=== PATIENT | female | born 1965 | race Caucasian/White ===

== ENCOUNTER → 2017-01-16 | Outpatient (CLI) | payer OTHER ==
--- NOTE | 2017-01-17 10:58 | MM ---
Reason for exam: screening (asymptomatic). Last mammogram was performed 4 years and 6 months ago. History: Patient is postmenopausal. Physical Findings: A clinical breast exam by your physician is recommended on an annual basis and results should be correlated with mammographic findings. MG Screening Mammo w CAD Bilateral CC and MLO view(s) were taken. Prior study comparison: July 21, 2012, mammogram. January 30, 2010, mammogram. The breast tissue is extremely dense which could obscure a lesion on mammography. Finding: There is a 3 mm equal density (isodense), indistinct mass located 8 cm from the nipple in the upper quadrant, posterior position of the left breast. New finding since July 21, 2012 and January 30, 2010. ASSESSMENT: Probably benign, BI-RAD 3 RECOMMENDATION: Follow-up diagnostic mammogram of the left breast in 6 months.
== END | disposition home or self-care (01) ==
LOC: RADMAMWWP 14:59
PROVIDERS: ATTEND Family Medicine
DX: Z12.31 Encounter for screening mammogram for malignant neoplasm of breast (principal)

== ENCOUNTER → 2017-07-18 | Outpatient (CLI) | payer OTHER ==
--- NOTE | 2017-07-18 11:45 | MM ---
Reason for exam: follow-up at short interval from prior study. Last mammogram was performed 6 months ago. History: Patient is postmenopausal. Physical Findings: Nurse did not find any significant physical abnormalities on exam. MG Diagnostic Mammo LT w CAD CC and MLO view(s) were taken of the left breast. Prior study comparison: January 16, 2017, bilateral MG screening mammo w CAD. July 21, 2012, mammogram. The breast tissue is heterogeneously dense. This may lower the sensitivity of mammography. Stable benign calcifications. There is no discrete abnormality. No significant new findings when compared with previous films. These results were verbally communicated with the patient and result sheet given to the patient on 07/18/17. ASSESSMENT: Benign, BI-RAD 2 RECOMMENDATION: Return to routine screening mammogram schedule for both breasts.
== END | disposition home or self-care (01) ==
LOC: RADMAMWWP 10:57
PROVIDERS: ATTEND Family Medicine
DX: R92.2 Inconclusive mammogram (principal)
CPT/HCPCS: 77065

== ENCOUNTER → 2018-01-16 | Outpatient (CLI) | payer OTHER ==
--- NOTE | 2018-01-16 13:28 | MM ---
Reason for exam: screening (asymptomatic). Last mammogram was performed 6 months ago. History: Patient is postmenopausal. Physical Findings: A clinical breast exam by your physician is recommended on an annual basis and results should be correlated with mammographic findings. MG Screening Mammo w CAD Bilateral CC and MLO view(s) were taken. Prior study comparison: July 18, 2017, left breast MG diagnostic mammo LT w CAD. January 16, 2017, bilateral MG screening mammo w CAD. The breast tissue is heterogeneously dense. This may lower the sensitivity of mammography. Stable benign calcifications. There is chronic nodularity bilaterally. No significant changes when compared with prior studies. ASSESSMENT: Benign, BI-RAD 2 RECOMMENDATION: Routine screening mammogram of both breasts in 1 year.
== END | disposition home or self-care (01) ==
LOC: RADMAMWWP 07:29
PROVIDERS: ATTEND Family Medicine
DX: Z12.31 Encounter for screening mammogram for malignant neoplasm of breast (principal)
CPT/HCPCS: 77067

== ENCOUNTER → 2020-04-12 | Outpatient (CLI) | payer OTHER ==
--- NOTE | 2020-04-17 08:59 | MM ---
Reason for exam: screening (asymptomatic). Last mammogram was performed 2 years and 3 months ago. History: Patient is postmenopausal. Physical Findings: A clinical breast exam by your physician is recommended on an annual basis and results should be correlated with mammographic findings. MG Screening Mammo w CAD Bilateral CC, MLO, and XCCL view(s) were taken. Prior study comparison: January 16, 2018, bilateral MG screening mammo w CAD. July 18, 2017, left breast MG diagnostic mammo LT w CAD. The breast tissue is heterogeneously dense. This may lower the sensitivity of mammography. No significant changes when compared with prior studies. ASSESSMENT: Benign, BI-RAD 2 RECOMMENDATION: Routine screening mammogram of both breasts in 1 year.
== END | disposition home or self-care (01) ==
LOC: RADMAMWWP 07:49
PROVIDERS: ATTEND Family Medicine
DX: Z12.31 Encounter for screening mammogram for malignant neoplasm of breast (principal)
CPT/HCPCS: 77067

== ENCOUNTER → 2021-08-14 | Outpatient (CLI) | payer OTHER ==
--- NOTE | 2021-08-15 12:25 | MM ---
Reason for exam: screening (asymptomatic). Last mammogram was performed 1 year and 4 months ago. History: Patient is postmenopausal. Physical Findings: A clinical breast exam by your physician is recommended on an annual basis and results should be correlated with mammographic findings. MG Screening Mammo w CAD Bilateral CC and MLO view(s) were taken. Prior study comparison: April 12, 2020, bilateral MG screening mammo w CAD. January 16, 2018, bilateral MG screening mammo w CAD. Finding: There are typically benign calcifications in the left breast laterally, 9cm from the nipple. No significant changes in finding since April 12, 2020 and January 16, 2018. ASSESSMENT: Benign, BI-RAD 2 RECOMMENDATION: Routine screening mammogram of both breasts in 1 year.
== END | disposition home or self-care (01) ==
LOC: RADMAMWWP 09:44
PROVIDERS: ATTEND Family Medicine
DX: Z12.31 Encounter for screening mammogram for malignant neoplasm of breast (principal); Z78.0 Asymptomatic menopausal state
CPT/HCPCS: 77067

== ENCOUNTER → 2022-07-30 | Outpatient (CLI) | payer OTHER ==
--- NOTE | 2022-07-30 11:06 | MR ---
EXAMINATION TYPE: MR angio head wo con DATE OF EXAM: 07/30/2022 COMPARISON: NONE HISTORY: Headache TECHNIQUE: Utilizing 3-D [id number] intracranial MRA of the [place] of [place] was performed. FINDINGS: The vertebrobasilar and carotid systems are patent. There is no sizable aneurysm or vascular malform ation. IMPRESSION: 1. No evidence of vascular malformation or sizable aneurysm.
--- NOTE | 2022-07-30 11:27 | MR ---
EXAMINATION TYPE: MR brain wo con DATE OF EXAM: 07/30/2022 COMPARISON: NONE HISTORY: Headaches TECHNIQUE: T1-weighted sagittal, T2, FLAIR, and diffusion axial, and T2 coronal coronal views of the brain are submitted. FINDINGS: Diffusion imaging demonstrates a small focal area of increased signal within the posterior right robson etal lobe measuring 4 mm. There is corresponding FLAIR abnormal signal.. The ventricles, basal ciste rns, and sulci overlying the convexities are consistent with the patient's age. There is no mass eff ect. Craniocervical junction maintained. Sella turcica has a normal appearance. Nasal septal deviation not ed. Changes of chronic sinusitis. There is additional area of abnormal signal involving the superior right parietal cortex just previou s ischemia. A few scattered focal areas of abnormal signal are also seen within the white matter. No cerebellopontine angle mass. IMPRESSION: 1. There is a 4 mm area of diffusion restriction within the posterior right parietal lobe. Could repr esent a tiny area of subacute ischemia. Report called to referring clinician Laureen Gutiérrez 11:20 AM 07/30/2022. 2. Additional couple scattered foci of abnormal signal within the white matter is nonspecific and cou ld be on the basis of remote ischemia, hypertension, migraine headaches, or possibly demyelinating di sease correlate clinically. 3. On FLAIR imaging there is an area of abnormal signal in the superior right parietal cortex suggest daryl of remote 1 cm area of prior ischemia.
== END | disposition home or self-care (01) ==
LOC: RADMRIMAIN 09:26
PROVIDERS: ATTEND Nurse Practitioner
DX: G44.53 Primary thunderclap headache (principal); G44.82 Headache associated with sexual activity; G93.89 Other specified disorders of brain; Z82.49 Family history of ischemic heart disease and other diseases of the circulatory system
CPT/HCPCS: 70544; 70551

== ENCOUNTER → 2022-07-30 | Outpatient (CLI) | payer OTHER ==
[2022-07-30 15:41] LABS: HCT 45.2 % (37.2-46.3); HGB 14.9 g/dL (12.0-15.0); MCH 30.3 pg (27.0-32.0); MCV 91.9 fL (80.0-97.0); Mean Platelet Volume 12.1 fL (9.5-12.2); NRBC Per 100 WBC 0 /100 WBCS (0.0-0.0); Platelet Count 182 X 10*3/uL (140-440); RBC 4.92 X 10*6/uL (4.10-5.20); RDW 13.1 % (11.5-14.5); WBC 7.01 X 10*3/uL (4.50-10.00)
[2022-07-30 16:11] LABS: ALT 23 U/L (8-44); AST 24 U/L (13-35); African American GFR (CKD) 111.5 (60.0-200.0); Albumin 4.6 g/dL (3.8-4.9); Albumin/Globulin Ratio 1.96 (1.60-3.17); Alkaline Phosphatase 109 U/L (41-126); BUN/Creat Ratio 22.44 Ratio (12.00-20.00); Blood Urea Nitrogen 15.8 mg/dL (9.0-27.0); Calcium 9.5 mg/dL (8.7-10.3); Chloride 103 mmol/L (96-109); Chol/HDL Ratio 3.19 Ratio; Globulin 2.3 g/dL (1.6-3.3); Glucose 91 mg/dL (70-110); LDL Cholesterol,Calculated 142.1 mg/dL (0.0-131.0); Non-African American GFR(CKD) 96.2 (60.0-200.0); Potassium 4.1 mmol/L (3.5-5.5); Sodium 141 mmol/L (135-145); Total Protein 6.9 g/dL (6.2-8.2)
== END | disposition home or self-care (01) ==
LOC: LABWHC1 08:38
DX: Z00.00 Encounter for general adult medical examination without abnormal findings (principal); Z11.59 Encounter for screening for other viral diseases; Z13.29 Encounter for screening for other suspected endocrine disorder; G44.53 Primary thunderclap headache; G44.82 Headache associated with sexual activity
CPT/HCPCS: 36415; 80053; 80061; 84443; 85027; 86803

== ENCOUNTER 2022-07-31 06:36 | Observation (INO) | payer OTHER ==
--- NOTE | 2022-07-31 07:39 | ED ---
General Adult HPI - General Chief complaint: Recheck/Abnormal Lab/Rx Stated complaint: Abnormal Lab, Headache Time Seen by Provider: 07/31/22 07:00 Source: patient, family Mode of arrival: ambulatory Limitations: no limitations - History of Present Illness Initial comments: 57 year old female presents to the emergency Department with abnormal MRI. Stat es that the beginning of June she had several headaches which prompted her to see her primary care doctor. The headaches have gotten more constant over the past 2 weeks. She will take Aleve which will alleviate her headache. She denies any fevers or chills. No head trauma. Denies any numbness or weakness in her extremities. No history of stroke. Her primary care doctor sent her for an MRI which was completed yesterday. She received a call stating that she had signs of a stroke on her MRI. Her primary care doctor was attempting to get her into a mult au matic operator and neurologist but told her if she had continued headache that she should go into the emergency department. Did have one this morning and took an Aleve. Reports her headache is currently 1 out of 10. No other alleviating, precipitating or modifying factors - Related Data Home Medications Medication Instructions Recorded Confirmed Aspirin EC [Ecotrin Low Dose] 81 mg PO DAILY 07/31/22 07/31/22 valACYclovir HCL [Valtrex] 1,000 mg PO DAILY PRN 07/31/22 07/31/22 Previous Rx's Medication Instructions Recorded Atorvastatin [Lipitor] 40 mg PO HS #30 tab 08/01/22 Butalb/APAP/Caff 50-325-40Mg 1 each PO Q4HR PRN #21 tab 08/01/22 [Fioricet 50-325-40] Cyanocobalamin [Vitamin B-12] 1,000 mcg PO DAILY #30 tab 08/01/22 Allergies Allergy/AdvReac Type Severity Reaction Status Date / Time Sulfa (Sulfonamide AdvReac Nausea & Verified 07/31/22 09:05 Antibiotics) Vomiting sulfamethoxazole AdvReac Nausea & Verified 07/31/22 09:05 [From Bactrim] Vomiting trimethoprim [From Bactrim] AdvReac Nausea & Verified 07/31/22 09:05 Vomiting Review of Systems ROS Statement: Those systems with pertinent positive or pertinent negative responses have been documented in the HPI. ROS Other: All systems not noted in ROS Statement are negative. Past Medical History History of Any Multi-Drug Resistant Organisms: None Reported Past Psychological History: No Psychological Hx Reported Smoking Status: Never smoker Past Alcohol Use History: None Reported Past Drug Use History: None Reported General Exam Limitations: no limitations General appearance: alert, in no apparent distress Head exam: Present: atraumatic, normocephalic, normal inspection Eye exam: Present: normal appearance, PERRL, EOMI. Absent: scleral icterus, conjunctival injection, periorbital swelling ENT exam: Present: normal exam, mucous membranes moist Neck exam: Present: normal inspection. Absent: tenderness, meningismus, lymphadenopathy Respiratory exam: Present: normal lung sounds bilaterally. Absent: respiratory distress, wheezes, rales, rhonchi, stridor Cardiovascular Exam: Present: regular rate, normal rhythm, normal heart sounds. Absent: systolic murmur, diastolic murmur, rubs, gallop, clicks GI/Abdominal exam: Present: soft, normal bowel sounds. Absent: distended, tenderness, guarding, rebound, rigid Extremities exam: Present: normal inspection, full ROM, normal capillary refill. Absent: tenderness, pedal edema, joint swelling, calf tenderness Back exam: Present: normal inspection Neurological exam: Present: alert, oriented X3, CN II-XII intact Psychiatric exam: Present: normal affect, normal mood Skin exam: Present: warm, dry, intact, normal color. Absent: rash Course Vital Signs 07/31/22 07/31/22 07/31/22 06:56 10:01 14:49 Temperature 97.8 F Pulse Rate 54 L 50 L 56 L Respiratory 18 16 18 Rate Blood Pressure 154/103 159/98 144/93 O2 Sat by Pulse 97 98 98 Oximetry EKG Findings - EKG Comments: EKG Findings:: EKG demonstrates sinus bradycardia with a rate of 49. RI interval 159. QRS 86. QTC of 404. No acute ST segment elevations or depressions Medical Decision Making - Medical Decision Making Was pt. sent in by a medical professional or institution (, PA, [employer], urgent care, hospital, or half-way...) When possible be specific @ -Yes PCP Did you speak to anyone other than the patient for history (EMS, parent, family, police, friend...)? What history was obtained from this source @ -No Did you review nursing and triage notes (agree or disagree)? Why? @ -I reviewed and agree with nursing and triage notes Were old charts reviewed (outside hosp., previous admission, EMS record, old EK G, old radiological studies, urgent care reports/EKG's, half-way records)? Report findings @ -Reviewed outpatient MRI Differential Diagnosis (chest pain, altered mental status, abdominal pain women, abdominal pain men, vaginal bleeding, weakness, fever, dyspnea, syncope, headache, dizziness, GI bleed, back pain, seizure, CVA, palpatations, mental health, musculoskeletal)? @ -CVA, brain mass, ms EKG interpreted by me (3pts min.). @ -yes X-rays interpreted by me (1pt min.). @ -None done CT interpreted by me (1pt min.). @ -None done U/S interpreted by me (1pt. min.). @ -None done What testing was considered but not performed or refused? (CT, X-rays, U/S, labs)? Why? @ -None What meds were considered but not given or refused? Why? @ -None Did you discuss the management of the patient with other professionals (professionals i.e. , PA, [employer], lab, RT, psych nurse, social work professor, sonar subsystem equipment operator, teacher, operations officer, case management associate)? Give summary @ -Dr. Danielle Was smoking cessation discussed for >3mins.? @ -No Was critical care preformed (if so, how long)? @ -No Were there social determinants of health that impacted care today? How? (Homelessness, low income, unemployed, alcoholism, drug addiction, transportation, low edu. Level, literacy, decrease access to med. care, half-way, rehab)? @ -No Was there de-escalation of care discussed even if they declined (Discuss DNR or withdrawal of care, Hospice)? DNR status @ -No What co-morbidities impacted this encounter? (DM, HTN, Smoking, COPD, CAD, Can cer, CVA, ARF, Chemo, Hep., AIDS, mental health diagnosis, sleep apnea, morbid obesity)? @ -None Was patient admitted / discharged? Hospital course, mention meds given and route, prescriptions, significant lab abnormalities, going to OR and other pertinent info. @ -Upon arrival patient is placed into room 23. Thorough history and physical exam is performed. IV access established laboratory studies are conducted. I did review the patient's blood work from her primary care office yesterday. I did review her MRI. I called and spoke with Dr. Danielle. He recommended that the patient be admitted for echo, carotid Dopplers and neurology consultation. Spoke with Dr. Muniz who agreed to admit the patient Undiagnosed new problem with uncertain prognosis? @ -yes Drug Therapy requiring intensive monitoring for toxicity (Heparin, Nitro, Insulin, Cardizem)? @ -No Were any procedures done? @ -No Diagnosis/symptom? @ -subacute cephalgia, subacute cva Acute, or Chronic, or Acute on Chronic? @ -subacute Uncomplicated (without systemic symptoms) or Complicated (systemic symptoms)? @ -complicated Side effects of treatment? @ -No Exacerbation, Progression, or Severe Exacerbation? @ -No Poses a threat to life or bodily function? How? (Chest pain, USA, AL, pneumonia, PE, COPD, DKA, ARF, appy, cholecystitis, CVA, Diverticulitis, Homicidal, Suicidal, threat to staff... and all critical care pts) @ -yes - Lab Data Result diagrams: 08/01/22 08:32 08/01/22 08:32 Lab Results 07/31/22 07/31/22 07/31/22 Range/Units 08:48 08:48 08:48 WBC 6.8 (3.8-10.6) k/uL RBC 4.99 (3.80-5.40) m/uL Hgb 15.2 (11.4-16.0) gm/dL Hct 45.1 (34.0-46.0) % MCV 90.3 (80.0-100.0) fL MCH 30.4 (25.0-35.0) pg MCHC 33.7 (31.0-37.0) g/dL RDW 12.8 (11.5-15.5) % Plt Count 189 (150-450) k/uL MPV 9.3 Neutrophils % 52 % Lymphocytes % 39 % Monocytes % 4 % Eosinophils % 3 % Basophils % 1 % Neutrophils # 3.6 (1.3-7.7) k/uL Lymphocytes # 2.7 (1.0-4.8) k/uL Monocytes # 0.3 (0-1.0) k/uL Eosinophils # 0.2 (0-0.7) k/uL Basophils # 0.0 (0-0.2) k/uL ESR (0-20) mm/hr PT 10.0 (9.0-12.0) sec INR 0.9 (<1.2) APTT 23.3 (22.0-30.0) sec Sodium 141 (137-145) mmol/L Potassium 4.3 (3.5-5.1) mmol/L Chloride 107 (98-107) mmol/L Carbon Dioxide 25 (22-30) mmol/L Anion Gap 9 mmol/L BUN 11 (7-17) mg/dL Creatinine 0.53 (0.52-1.04) mg/dL Est GFR (CKD-EPI)AfAm >90 (>60 ml/min/1.73 sqM) Est GFR (CKD-EPI)NonAf >90 (>60 ml/min/1.73 sqM) Glucose 94 (74-99) mg/dL Calcium 9.4 (8.4-10.2) mg/dL Total Bilirubin 0.6 (0.2-1.3) mg/dL AST 28 (14-36) U/L ALT 26 (4-34) U/L Alkaline Phosphatase 100 (38-126) U/L Creatine Kinase (30-135) U/L Troponin I (0.000-0.034) ng/mL C-Reactive Protein (<1.0) mg/dL Total Protein 7.2 (6.3-8.2) g/dL Albumin 4.4 (3.5-5.0) g/dL Triglycerides (0.00-149.00) mg/dL Cholesterol (0.00-200.00) mg/dL LDL Cholesterol, Calc (0.0-131.0) mg/dL VLDL Cholesterol, Calc (5.00-40.00) mg/dL HDL Cholesterol (40.00-60.00) mg/dL Cholesterol/HDL Ratio Ratio Vitamin B12 (200.0-944.0) pg/mL Vit D 1,25-Dihydroxy (20 - 79) pg/mL Folate (4.40-31.00) ng/mL TSH (0.465-4.680) mIU/L CSF Tube Number CSF Volume CSF Appearance CSF Color CSF RBC (0-10) u/L CSF Tot Nucleated Cells (0-5) u/L CSF Glucose (40-70) mg/dL CSF Total Protein (12-60) mg/dL CSF Albumin (0.0 - 35.0) mg/dL CSF IgG (MS) (0.0 - 3.4) mg/dL Serum Albumin (3500 - 5200) mg/dL CSF IgG/Alb Ratio MS (0.00 - 0.77) CSF IgG Synth Rate MS (0.00 - 3.00) mg/day CSF Oligoclonal Bands IgG (700 - 1600) mg/dL PRERNA Screen (NEGATIVE) Treponema pallidum Ab (Nonreactive) HIV-1 Antibody (Non-Reactive) HIV Ag/Ab Interpret HIV p24 Antibody (Non-Reactive) HIV-2 Antibody (Non-Reactive) HIV P24 Antigen (Non-Reactive) HTLV I/II Ab (EIA) (Negative) 07/31/22 07/31/22 07/31/22 Range/Units 08:48 08:48 11:21 WBC (3.8-10.6) k/uL RBC (3.80-5.40) m/uL Hgb (11.4-16.0) gm/dL Hct (34.0-46.0) % MCV (80.0-100.0) fL MCH (25.0-35.0) pg MCHC (31.0-37.0) g/dL RDW (11.5-15.5) % Plt Count (150-450) k/uL MPV Neutrophils % % Lymphocytes % % Monocytes % % Eosinophils % % Basophils % % Neutrophils # (1.3-7.7) k/uL Lymphocytes # (1.0-4.8) k/uL Monocytes # (0-1.0) k/uL Eosinophils # (0-0.7) k/uL Basophils # (0-0.2) k/uL ESR (0-20) mm/hr PT (9.0-12.0) sec INR (<1.2) APTT (22.0-30.0) sec Sodium (137-145) mmol/L Potassium (3.5-5.1) mmol/L Chloride (98-107) mmol/L Carbon Dioxide (22-30) mmol/L Anion Gap mmol/L BUN (7-17) mg/dL Creatinine (0.52-1.04) mg/dL Est GFR (CKD-EPI)AfAm (>60 ml/min/1.73 sqM) Est GFR (CKD-EPI)NonAf (>60 ml/min/1.73 sqM) Glucose (74-99) mg/dL Calcium (8.4-10.2) mg/dL Total Bilirubin (0.2-1.3) mg/dL AST (14-36) U/L ALT (4-34) U/L Alkaline Phosphatase (38-126) U/L Creatine Kinase 60 (30-135) U/L Troponin I <0.012 (0.000-0.034) ng/mL C-Reactive Protein (<1.0) mg/dL Total Protein (6.3-8.2) g/dL Albumin (3.5-5.0) g/dL Triglycerides (0.00-149.00) mg/dL Cholesterol (0.00-200.00) mg/dL LDL Cholesterol, Calc (0.0-131.0) mg/dL VLDL Cholesterol, Calc (5.00-40.00) mg/dL HDL Cholesterol (40.00-60.00) mg/dL Cholesterol/HDL Ratio Ratio Vitamin B12 (200.0-944.0) pg/mL Vit D 1,25-Dihydroxy (20 - 79) pg/mL Folate (4.40-31.00) ng/mL TSH (0.465-4.680) mIU/L CSF Tube Number 4 CSF Volume 2.5 CSF Appearance Clear CSF Color Colorless CSF RBC 1 (0-10) u/L CSF Tot Nucleated Cells 0 (0-5) u/L CSF Glucose 59 (40-70) mg/dL CSF Total Protein 42 (12-60) mg/dL CSF Albumin (0.0 - 35.0) mg/dL CSF IgG (MS) (0.0 - 3.4) mg/dL Serum Albumin (3500 - 5200) mg/dL CSF IgG/Alb Ratio MS (0.00 - 0.77) CSF IgG Synth Rate MS (0.00 - 3.00) mg/day CSF Oligoclonal Bands IgG (700 - 1600) mg/dL PRERNA Screen (NEGATIVE) Treponema pallidum Ab (Nonreactive) HIV-1 Antibody (Non-Reactive) HIV Ag/Ab Interpret HIV p24 Antibody (Non-Reactive) HIV-2 Antibody (Non-Reactive) HIV P24 Antigen (Non-Reactive) HTLV I/II Ab (EIA) (Negative) 07/31/22 07/31/22 07/31/22 Range/Units 13:20 13:20 13:20 WBC (3.8-10.6) k/uL RBC (3.80-5.40) m/uL Hgb (11.4-16.0) gm/dL Hct (34.0-46.0) % MCV (80.0-100.0) fL MCH (25.0-35.0) pg MCHC (31.0-37.0) g/dL RDW (11.5-15.5) % Plt Count (150-450) k/uL MPV Neutrophils % % Lymphocytes % % Monocytes % % Eosinophils % % Basophils % % Neutrophils # (1.3-7.7) k/uL Lymphocytes # (1.0-4.8) k/uL Monocytes # (0-1.0) k/uL Eosinophils # (0-0.7) k/uL Basophils # (0-0.2) k/uL ESR 8 (0-20) mm/hr PT (9.0-12.0) sec INR (<1.2) APTT (22.0-30.0) sec Sodium (137-145) mmol/L Potassium (3.5-5.1) mmol/L Chloride (98-107) mmol/L Carbon Dioxide (22-30) mmol/L Anion Gap mmol/L BUN (7-17) mg/dL Creatinine (0.52-1.04) mg/dL Est GFR (CKD-EPI)AfAm (>60 ml/min/1.73 sqM) Est GFR (CKD-EPI)NonAf (>60 ml/min/1.73 sqM) Glucose (74-99) mg/dL Calcium (8.4-10.2) mg/dL Total Bilirubin (0.2-1.3) mg/dL AST (14-36) U/L ALT (4-34) U/L Alkaline Phosphatase (38-126) U/L Creatine Kinase 48 (30-135) U/L Troponin I (0.000-0.034) ng/mL C-Reactive Protein <0.5 (<1.0) mg/dL Total Protein (6.3-8.2) g/dL Albumin (3.5-5.0) g/dL Triglycerides 89.70 (0.00-149.00) mg/dL Cholesterol 218.00 H (0.00-200.00) mg/dL LDL Cholesterol, Calc 134.6 H (0.0-131.0) mg/dL VLDL Cholesterol, Calc 17.94 (5.00-40.00) mg/dL HDL Cholesterol 65.50 H (40.00-60.00) mg/dL Cholesterol/HDL Ratio 3.33 Ratio Vitamin B12 293.0 (200.0-944.0) pg/mL Vit D 1,25-Dihydroxy (20 - 79) pg/mL Folate (4.40-31.00) ng/mL TSH 4.030 (0.465-4.680) mIU/L CSF Tube Number CSF Volume CSF Appearance CSF Color CSF RBC (0-10) u/L CSF Tot Nucleated Cells (0-5) u/L CSF Glucose (40-70) mg/dL CSF Total Protein (12-60) mg/dL CSF Albumin (0.0 - 35.0) mg/dL CSF IgG (MS) (0.0 - 3.4) mg/dL Serum Albumin (3500 - 5200) mg/dL CSF IgG/Alb Ratio MS (0.00 - 0.77) CSF IgG Synth Rate MS (0.00 - 3.00) mg/day CSF Oligoclonal Bands IgG (700 - 1600) mg/dL PRERNA Screen (NEGATIVE) Treponema pallidum Ab (Nonreactive) HIV-1 Antibody Non-Reactive (Non-Reactive) HIV Ag/Ab Interpret HIV p24 Antibody Non-Reactive (Non-Reactive) HIV-2 Antibody Non-Reactive (Non-Reactive) HIV P24 Antigen Non-Reactive (Non-Reactive) HTLV I/II Ab (EIA) (Negative) 07/31/22 07/31/22 07/31/22 Range/Units 13:20 13:20 13:20 WBC (3.8-10.6) k/uL RBC (3.80-5.40) m/uL Hgb (11.4-16.0) gm/dL Hct (34.0-46.0) % MCV (80.0-100.0) fL MCH (25.0-35.0) pg MCHC (31.0-37.0) g/dL RDW (11.5-15.5) % Plt Count (150-450) k/uL MPV Neutrophils % % Lymphocytes % % Monocytes % % Eosinophils % % Basophils % % Neutrophils # (1.3-7.7) k/uL Lymphocytes # (1.0-4.8) k/uL Monocytes # (0-1.0) k/uL Eosinophils # (0-0.7) k/uL Basophils # (0-0.2) k/uL ESR (0-20) mm/hr PT (9.0-12.0) sec INR (<1.2) APTT (22.0-30.0) sec Sodium (137-145) mmol/L Potassium (3.5-5.1) mmol/L Chloride (98-107) mmol/L Carbon Dioxide (22-30) mmol/L Anion Gap mmol/L BUN (7-17) mg/dL Creatinine (0.52-1.04) mg/dL Est GFR (CKD-EPI)AfAm (>60 ml/min/1.73 sqM) Est GFR (CKD-EPI)NonAf (>60 ml/min/1.73 sqM) Glucose (74-99) mg/dL Calcium (8.4-10.2) mg/dL Total Bilirubin (0.2-1.3) mg/dL AST (14-36) U/L ALT (4-34) U/L Alkaline Phosphatase (38-126) U/L Creatine Kinase (30-135) U/L Troponin I (0.000-0.034) ng/mL C-Reactive Protein (<1.0) mg/dL Total Protein (6.3-8.2) g/dL Albumin (3.5-5.0) g/dL Triglycerides (0.00-149.00) mg/dL Cholesterol (0.00-200.00) mg/dL LDL Cholesterol, Calc (0.0-131.0) mg/dL VLDL Cholesterol, Calc (5.00-40.00) mg/dL HDL Cholesterol (40.00-60.00) mg/dL Cholesterol/HDL Ratio Ratio Vitamin B12 (200.0-944.0) pg/mL Vit D 1,25-Dihydroxy (20 - 79) pg/mL Folate (4.40-31.00) ng/mL TSH (0.465-4.680) mIU/L CSF Tube Number CSF Volume CSF Appearance CSF Color CSF RBC (0-10) u/L CSF Tot Nucleated Cells (0-5) u/L CSF Glucose (40-70) mg/dL CSF Total Protein (12-60) mg/dL CSF Albumin (0.0 - 35.0) mg/dL CSF IgG (MS) (0.0 - 3.4) mg/dL Serum Albumin (3500 - 5200) mg/dL CSF IgG/Alb Ratio MS (0.00 - 0.77) CSF IgG Synth Rate MS (0.00 - 3.00) mg/day CSF Oligoclonal Bands IgG (700 - 1600) mg/dL PRERNA Screen NEGATIVE (NEGATIVE) Treponema pallidum Ab Nonreactive (Nonreactive) HIV-1 Antibody (Non-Reactive) HIV Ag/Ab Interpret HIV p24 Antibody (Non-Reactive) HIV-2 Antibody (Non-Reactive) HIV P24 Antigen (Non-Reactive) HTLV I/II Ab (EIA) Negative (Negative) 07/31/22 07/31/22 07/31/22 Range/Units 13:20 13:20 13:20 WBC (3.8-10.6) k/uL RBC (3.80-5.40) m/uL Hgb (11.4-16.0) gm/dL Hct (34.0-46.0) % MCV (80.0-100.0) fL MCH (25.0-35.0) pg MCHC (31.0-37.0) g/dL RDW (11.5-15.5) % Plt Count (150-450) k/uL MPV Neutrophils % % Lymphocytes % % Monocytes % % Eosinophils % % Basophils % % Neutrophils # (1.3-7.7) k/uL Lymphocytes # (1.0-4.8) k/uL Monocytes # (0-1.0) k/uL Eosinophils # (0-0.7) k/uL Basophils # (0-0.2) k/uL ESR (0-20) mm/hr PT (9.0-12.0) sec INR (<1.2) APTT (22.0-30.0) sec Sodium (137-145) mmol/L Potassium (3.5-5.1) mmol/L Chloride (98-107) mmol/L Carbon Dioxide (22-30) mmol/L Anion Gap mmol/L BUN (7-17) mg/dL Creatinine (0.52-1.04) mg/dL Est GFR (CKD-EPI)AfAm (>60 ml/min/1.73 sqM) Est GFR (CKD-EPI)NonAf (>60 ml/min/1.73 sqM) Glucose (74-99) mg/dL Calcium (8.4-10.2) mg/dL Total Bilirubin (0.2-1.3) mg/dL AST (14-36) U/L ALT (4-34) U/L Alkaline Phosphatase (38-126) U/L Creatine Kinase (30-135) U/L Troponin I (0.000-0.034) ng/mL C-Reactive Protein (<1.0) mg/dL Total Protein (6.3-8.2) g/dL Albumin (3.5-5.0) g/dL Triglycerides (0.00-149.00) mg/dL Cholesterol (0.00-200.00) mg/dL LDL Cholesterol, Calc (0.0-131.0) mg/dL VLDL Cholesterol, Calc (5.00-40.00) mg/dL HDL Cholesterol (40.00-60.00) mg/dL Cholesterol/HDL Ratio Ratio Vitamin B12 (200.0-944.0) pg/mL Vit D 1,25-Dihydroxy 73 (20 - 79) pg/mL Folate 19.60 (4.40-31.00) ng/mL TSH (0.465-4.680) mIU/L CSF Tube Number CSF Volume CSF Appearance CSF Color CSF RBC (0-10) u/L CSF Tot Nucleated Cells (0-5) u/L CSF Glucose (40-70) mg/dL CSF Total Protein (12-60) mg/dL CSF Albumin 15.8 (0.0 - 35.0) mg/dL CSF IgG (MS) 1.6 (0.0 - 3.4) mg/dL Serum Albumin 4,570 (3500 - 5200) mg/dL CSF IgG/Alb Ratio MS 0.53 (0.00 - 0.77) CSF IgG Synth Rate MS 0.00 (0.00 - 3.00) mg/day CSF Oligoclonal Bands See Below IgG 871 (700 - 1600) mg/dL PRERNA Screen (NEGATIVE) Treponema pallidum Ab (Nonreactive) HIV-1 Antibody (Non-Reactive) HIV Ag/Ab Interpret HIV p24 Antibody (Non-Reactive) HIV-2 Antibody (Non-Reactive) HIV P24 Antigen (Non-Reactive) HTLV I/II Ab (EIA) (Negative) 08/01/22 08/01/22 Range/Units 08:32 08:32 WBC 6.7 (3.8-10.6) k/uL RBC 5.09 (3.80-5.40) m/uL Hgb 15.7 (11.4-16.0) gm/dL Hct 45.6 (34.0-46.0) % MCV 89.5 (80.0-100.0) fL MCH 30.8 (25.0-35.0) pg MCHC 34.5 (31.0-37.0) g/dL RDW 13.1 (11.5-15.5) % Plt Count 189 (150-450) k/uL MPV 10.4 Neutrophils % % Lymphocytes % % Monocytes % % Eosinophils % % Basophils % % Neutrophils # (1.3-7.7) k/uL Lymphocytes # (1.0-4.8) k/uL Monocytes # (0-1.0) k/uL Eosinophils # (0-0.7) k/uL Basophils # (0-0.2) k/uL ESR (0-20) mm/hr PT (9.0-12.0) sec INR (<1.2) APTT (22.0-30.0) sec Sodium 139 (137-145) mmol/L Potassium 4.3 (3.5-5.1) mmol/L Chloride 104 (98-107) mmol/L Carbon Dioxide 29 (22-30) mmol/L Anion Gap 6 mmol/L BUN 19 H (7-17) mg/dL Creatinine 0.58 (0.52-1.04) mg/dL Est GFR (CKD-EPI)AfAm >90 (>60 ml/min/1.73 sqM) Est GFR (CKD-EPI)NonAf >90 (>60 ml/min/1.73 sqM) Glucose 94 (74-99) mg/dL Calcium 9.2 (8.4-10.2) mg/dL Total Bilirubin (0.2-1.3) mg/dL AST (14-36) U/L ALT (4-34) U/L Alkaline Phosphatase (38-126) U/L Creatine Kinase (30-135) U/L Troponin I (0.000-0.034) ng/mL C-Reactive Protein (<1.0) mg/dL Total Protein (6.3-8.2) g/dL Albumin (3.5-5.0) g/dL Triglycerides (0.00-149.00) mg/dL Cholesterol (0.00-200.00) mg/dL LDL Cholesterol, Calc (0.0-131.0) mg/dL VLDL Cholesterol, Calc (5.00-40.00) mg/dL HDL Cholesterol (40.00-60.00) mg/dL Cholesterol/HDL Ratio Ratio Vitamin B12 (200.0-944.0) pg/mL Vit D 1,25-Dihydroxy (20 - 79) pg/mL Folate (4.40-31.00) ng/mL TSH (0.465-4.680) mIU/L CSF Tube Number CSF Volume CSF Appearance CSF Color CSF RBC (0-10) u/L CSF Tot Nucleated Cells (0-5) u/L CSF Glucose (40-70) mg/dL CSF Total Protein (12-60) mg/dL CSF Albumin (0.0 - 35.0) mg/dL CSF IgG (MS) (0.0 - 3.4) mg/dL Serum Albumin (3500 - 5200) mg/dL CSF IgG/Alb Ratio MS (0.00 - 0.77) CSF IgG Synth Rate MS (0.00 - 3.00) mg/day CSF Oligoclonal Bands IgG (700 - 1600) mg/dL PRERNA Screen (NEGATIVE) Treponema pallidum Ab (Nonreactive) HIV-1 Antibody (Non-Reactive) HIV Ag/Ab Interpret HIV p24 Antibody (Non-Reactive) HIV-2 Antibody (Non-Reactive) HIV P24 Antigen (Non-Reactive) HTLV I/II Ab (EIA) (Negative) Disposition Clinical Impression: CVA (cerebral vascular accident), Headache Disposition: ADMITTED IP TO THIS [facility] Condition: Stable Is patient prescribed a controlled substance at d/c from ED?: No Time of Disposition: 08:44 Decision to Admit Reason: Admit from EC Decision Date: 07/31/22 Decision Time: 08:44
[2022-07-31 09:08] LABS: Basophils % (A) 1 %; Eosinophils # (A) 0.2 k/uL (0-0.7); Eosinophils % (A) 3 %; HCT 45.1 % (34.0-46.0); HGB 15.2 gm/dL (11.4-16.0); Lymphocytes # (A) 2.7 k/uL (1.0-4.8); Lymphocytes % (A) 39 %; MCH 30.4 pg (25.0-35.0); MCHC 33.7 g/dL (31.0-37.0); MCV 90.3 fL (80.0-100.0); Mean Platelet Volume 9.3; Monocytes # (A) 0.3 k/uL (0-1.0); Monocytes % (A) 4 %; Neutrophils # (A) 3.6 k/uL (1.3-7.7); Neutrophils % (A) 52 %; Platelet Count 189 k/uL (150-450); RBC 4.99 m/uL (3.80-5.40); RDW 12.8 % (11.5-15.5); WBC 6.8 k/uL (3.8-10.6)
[2022-07-31 09:17] LABS: INR 0.9 (<1.2); Partial Thromboplastin Time 23.3 sec (22.0-30.0)
[2022-07-31 09:30] LABS: ALT 26 U/L (4-34); AST 28 U/L (14-36); African American GFR (CKD) >90 (>60 ml/min/1.73 sqM); Albumin 4.4 g/dL (3.5-5.0); Alkaline Phosphatase 100 U/L (38-126); Anion Gap 9 mmol/L; Blood Urea Nitrogen 11 mg/dL (7-17); Calcium 9.4 mg/dL (8.4-10.2); Carbon Dioxide 25 mmol/L (22-30); Chloride 107 mmol/L (98-107); Glucose 94 mg/dL (74-99); Non-African American GFR(CKD) >90 (>60 ml/min/1.73 sqM); Potassium 4.3 mmol/L (3.5-5.1); Sodium 141 mmol/L (137-145); Total Bilirubin 0.6 mg/dL (0.2-1.3); Total Protein 7.2 g/dL (6.3-8.2)
[2022-07-31] MEDS ORDERED: ACETAMINOPHEN TAB 325 MG TAB PO PRN (10:05)
--- NOTE | 2022-07-31 10:13 | US ---
EXAMINATION TYPE: US carotid duplex BILAT DATE OF EXAM: 07/31/2022 COMPARISON: NONE CLINICAL HISTORY: Stenosis. Headaches. Patient states she had an MRI yesterday and it showed she had a stroke. TECHNIQUE: Carotid duplex ultrasound examination. Indirect Doppler criteria was utilized. FINDINGS: EXAM MEASUREMENTS: RIGHT: Peak Systolic Velocity (PSV) cm/sec ----- Right CCA: 49.6 ----- Right ICA: 99.5 ----- Right ECA: 79.8 ICA/CCA ratio: 2.0 RIGHT: End Diastole cm/sec ----- Right CCA: 18.2 ----- Right ICA: 42.6 ----- Right ECA: 14.9 LEFT: Peak Systolic Velocity (PSV) cm/sec ----- Left CCA: 54.9 ----- Left ICA: 89.7 ----- Left ECA: 61.6 ICA/CCA ratio: 1.6 LEFT: End Diastole cm/sec ----- Left CCA: 19.1 ----- Left ICA: 44.6 ----- Left ECA: 13.6 VERTEBRALS (direction of flow): Right Vertebral: Antegrade Left Vertebral: Antegrade Rhythm: Normal TRAFFIC LINE PAINTER NOTES: No significant velocity elevations or plaque visualized. Slight wall thickening v isualized. IMPRESSION: No ultrasound evidence for hemodynamically significant stenosis of the bilateral internal carotid art eries. Criteria for Assigning % of Stenosis / Diameter reduction (Estimation based on the indirect measurements of the internal carotid artery velocities (ICA PSV). 1. Normal (no stenosis)=ICA PSV < 125 cm/s: ratio < 2.0: ICA EDV<40 cm/s. 2. Less than 50% stenosis=ICA PSV < 125 cm/s: ratio < 2.0: ICA EDV<40 cm/s. 3. 50 to 69% stenosis=ICA PSV of 125 to 230 cm/s: ration 2.0 ? 4.0: ICA EDV 40-100 cm/s. 4. Greater than 70% stenosis to near occlusion= ICA PSV > 230 cm/s: ratio > 4.0: ICA EDV > 100 cm/s. 5. Near occlusion= ICA PSV velocities may be low or undetectable: variable ratio and ICA EDV. 6. Total occlusion=unable to detect flow.
--- NOTE | 2022-07-31 13:08 | P.CNNES ---
History of Present Illness Consult date: 07/31/22 Requesting physician: Cookie Guzman Reason for Consult: subacute cva History of Present Illness: This is a 57-year-old gentleman who presented to the emergency department because a headache and abnormal MRI finding. Patient stated that she's been having headaches since June that's been really worse and she felt the headache were over the bilateral occipital parietal region and she had 3 episodes that were severe that were 6-9/10 and she describes it as a sharp throbbing pulsating headache. Denies any radiation of the headache. The headache would last entire day. Denies any photophobia or phonophobia. Denies any vomiting. She did have mild nausea. She would take Aleve that would take at the edge out of the headache. Then she would get other headache in the right occipital and parietal region at 6 out of 10. She does not feel there is intense and happens sporadically. She denies of any visual disturbance, difficulty swallowing, difficulty getting her words out, and he focal weakness or numbness. As a result of her headache her primary ordered MRI of the brain as well as MRA of the head that MRI of the brain is reported as 4 mm area of diffusion restriction within the posterior right parietal lobe. Could represent tiny area of subacute ischemia. Additional couple scattered foci of abnormal signal within the white matter is nonspecific and could be on the basis of remote ischemia, hyperte nsion, migraine headache or possibly demyelinating disease correlate clinically. FLAIR there is area of abnormal significant in the superior right parietal cortex suggestive of remote 1 cm area of prior ischemia. MRA of the head is reported as no evidence of vascular malformation or sizable aneurysm. Because of abnormal MRI and the she because she had another headache today she was concerned and that she wanted further evaluation. She has not seen an neurologist yet. She denies any family history of the hyper probable issues. She has a grandmother in her 80s that had a stroke. She denies any family history of multiple sclerosis that she is aware of. I personally reviewed the MRI of the brain w/o: And I felt that the lesion over the right parietal occipital region seems more T2 Shine thru. Does not seem like an acute or subacute ischemia. Patient has nonspecific lesions on FLAIR. Again I do not appreciate any acute or subacute ischemia. Review of Systems Review of system: The 12 point system was reviewed and apparent positive and negative per HPI. Past Medical History History of Any Multi-Drug Resistant Organisms: None Reported Past Psychological History: No Psychological Hx Reported Smoking Status: Never smoker Past Alcohol Use History: None Reported Past Drug Use History: None Reported Medications and Allergies Home Medications Medication Instructions Recorded Confirmed Type Aspirin EC [Ecotrin Low Dose] 81 mg PO DAILY 07/31/22 07/31/22 History Ibuprofen [Advil] 600 - 800 mg PO Q8H PRN 07/31/22 07/31/22 History valACYclovir HCL [Valtrex] 1,000 mg PO DAILY PRN 07/31/22 07/31/22 History Allergies Allergy/AdvReac Type Severity Reaction Status Date / Time Sulfa (Sulfonamide AdvReac Nausea & Verified 07/31/22 09:05 Antibiotics) Vomiting sulfamethoxazole AdvReac Nausea & Verified 07/31/22 09:05 [From Bactrim] Vomiting trimethoprim [From Bactrim] AdvReac Nausea & Verified 07/31/22 09:05 Vomiting Physical Examination - Vital Signs Vital Signs: Vital Signs Temp Pulse Resp BP Pulse Ox 07/31/22 10:01 50 L 16 159/98 98 07/31/22 06:56 97.8 F 54 L 18 154/103 97 Intake and Output 07/30/22 07/31/22 07/31/22 22:59 06:59 14:59 Other: Weight 68.946 kg GENERAL: The patient is lying in bed and is not in acute distress. CHEST: The heart rate is regular rate rhythm. No murmurs to auscultation. . LUNG: Clear to auscultation bilaterally no wheezing noted throughout. Not labored breathing. ABDOMEN/GI: Bowel sounds present in all 4 quadrants. No tenderness to palpation throughout. NEUROLOGICAL: Higher mental function: The patient is awake, alert, oriented to self, place and time. Patient is following commands. No aphasia and no neglect. Cranial nerves: The pupils are round, equal and reactive to light and accommodation. Visual ennis are full to confrontation throughout. Extraocular movement is intact no nystagmus is noted. Facial sensation is normal to touch throughout. The facial strength is normal throughout. Hearing is normal bilaterally to hand rub. Tongue is midline and moved [id number] without any difficulty. No dysarthria is noted. Shoulder shrug is normal bilaterally. Motor: The strength is 5 over 5 throughout. Normal tone and bulk. Cerebellum: Normal finger to nose bilaterally. Sensation: Sensation is normal to touch throughout. Reflexes (right/left): 2+ throughout. Plantars are downgoing bilaterally. Results - Laboratory Findings CBC and BMP: 07/31/22 08:48 07/31/22 08:48 Assessment and Plan Assessment: This is a 57-year-old woman who presented to the emergency department because of headache as well as recent MRI the brain on 07/30/2022 that was reported abnormal suggestive of subacute ischemia over the right parietal. Regarding the lesion on the right parietal/occipital: I felt was more T2 shine through. It is not acute or subacute ischemia. Lesion is poosibly demylinating. Cannot conclusively rule out old stroke but I feel unlikely. Cephalgia due to above Plan: I'll order MRI of the brain with, MRI the cervical spine with and without. I will attempt to pursue with lumbar puncture MS protocol. I ordered carotid duplex and lipid panel. 2-D echo was ordered. Ordered TSH, vitamin B12, ESR, a day, HIV, syphilis test, HTLV-1, folate. Consulted pain specialist for lumbar puncture. Recommend opening and closing pressure. In the ED the patient was started on aspirin 325 daily as well as Lipitor 80 mg daily at bedtime by the primary team. I'll decrease the Lipitor to 40 mg for now. Continue neurochecks Continue cardiac monitoring. PT OT and MUSIC WORKER are consulted Defer the rest of the medical management to primary team For DVT prophylaxis use SCDs and avoid the any anticoagulation for now since w e'll attempt to pursue lumbar puncture. Upon discharge the patient needs to follow-up with a neurologist in outpatient within 1-2 weeks. The plan was discussed with the patient and her nurse. Thank you for the consultation. Time with Patient: Greater than 30
[2022-07-31 13:52] LABS: C Reactive Protein <0.5 mg/dL (<1.0); Creatine Kinase 48 U/L (30-135)
--- NOTE | 2022-07-31 16:17 | P.HPIM ---
History of Present Illness H&P Date: 07/31/22 Chief Complaint: Headache * 57-year-old lady with no significant past medical history presented to the emergency department after patient had an abnormal MRI finding. Patient was having ongoing headache for one month and had followed up with her primary care physician ordered an MRI brain.MRI of the brain is reported as 4 mm area of diffusion restriction within the posterior right parietal lobe. Could represent tiny area of subacute ischemia. Additional couple scattered foci of abnormal signal within the white matter is nonspecific and could be on the basis of remote ischemia, hypertension, migraine headache or possibly demyelinating disease correlate clinically. FLAIR there is area of abnormal significant in the superior right parietal cortex suggestive of remote 1 cm area of prior ischemia.MRA of the head is reported as no evidence of vascular malformation or sizable aneurysm. * Because of abnormal MRI she was concerned and that she wanted further evaluat ion * Patient is admitted with further workup ordered including echocardiogram as well as carotid US * Patient was seen in ED room 23 is holding. Extensive workup ordered by neurology Review of Systems REVIEW OF SYSTEMS: Essentially negative except headache CONSTITUTIONAL: No fever, no malaise, no fatigue. HEENT: No recent visual problems or hearing problems. Denied any sore throat. CARDIOVASCULAR: No chest pain, orthopnea, PND, no palpitations, no syncope. PULMONARY: No shortness of breath, no cough, no hemoptysis. GASTROINTESTINAL: No diarrhea, no nausea, no vomiting, no abdominal pain. NEUROLOGICAL: No headaches, no weakness, no numbness. HEMATOLOGICAL: Denies any bleeding or petechiae. GENITOURINARY: Denies any burning micturition, frequency, or urgency. MUSCULOSKELETAL/RHEUMATOLOGICAL: Denies any joint pain, swelling, or any muscle pain. ENDOCRINE: Denies any polyuria or polydipsia. Past Medical History History of Any Multi-Drug Resistant Organisms: None Reported Past Psychological History: No Psychological Hx Reported Smoking Status: Never smoker Past Alcohol Use History: None Reported Past Drug Use History: None Reported Medications and Allergies Home Medications Medication Instructions Recorded Confirmed Type Aspirin EC [Ecotrin Low Dose] 81 mg PO DAILY 07/31/22 07/31/22 History Ibuprofen [Advil] 600 - 800 mg PO Q8H PRN 07/31/22 07/31/22 History valACYclovir HCL [Valtrex] 1,000 mg PO DAILY PRN 07/31/22 07/31/22 History Allergies Allergy/AdvReac Type Severity Reaction Status Date / Time Sulfa (Sulfonamide AdvReac Nausea & Verified 07/31/22 09:05 Antibiotics) Vomiting sulfamethoxazole AdvReac Nausea & Verified 07/31/22 09:05 [From Bactrim] Vomiting trimethoprim [From Bactrim] AdvReac Nausea & Verified 07/31/22 09:05 Vomiting Physical Exam Vitals: Vital Signs Temp Pulse Resp BP Pulse Ox 07/31/22 14:49 56 L 18 144/93 98 07/31/22 10:01 50 L 16 159/98 98 07/31/22 06:56 97.8 F 54 L 18 154/103 97 Intake and Output 07/31/22 07/31/22 07/31/22 06:59 14:59 22:59 Other: Weight 68.946 kg PHYSICAL EXAMINATION: Vital reviewed GENERAL: The patient is alert and oriented x3, not in any acute distress. Well developed HEENT: Pupils are round and equally reacting to light. EOMI. No scleral icterus. No conjunctival pallor. Normocephalic, atraumatic. No pharyngeal erythema. CARDIOVASCULAR: S1 and S2 present. No murmurs, Edema not present PULMONARY: Chest is clear to auscultation, no wheezing or Ronchi ABDOMEN: Soft, nontender, nondistended, normoactive bowel sounds. No palpable organomegaly. MUSCULOSKELETAL: No joint swelling or deformity. EXTREMITIES: No cyanosis, clubbing, or pedal edema. NEUROLOGICAL: Gross neurological examination did not reveal any focal deficits. SKIN: No rashes. Results CBC & Chem 7: 07/31/22 08:48 07/31/22 08:48 Assessment and Plan Assessment: Assessment and plan * Subacute CVA right posterior parietal lobe * Ongoing chronic headache * Consult obtained from neurology * MRI cervical spine with and without contrast ordered per neurology MRI brain, echocardiogram ordered * Continue to neurochecks * Workup including TSH, ESR HIV syphilis ordered by neurology * Neurology planning lumbar puncture * SCD for DVT prophylaxis * CODE STATUS is full code
[2022-07-31] MEDS ORDERED: ATORVASTATIN 80 MG TAB PO SCH (21:00)
[2022-07-31] MEDS ORDERED: ATORVASTATIN 40 MG TAB PO SCH (21:00)
[2022-07-31 23:48] LABS: HIV 2 AB Non-Reactive (Non-Reactive); HIV AB P24 Non-Reactive (Non-Reactive); HIV P24 AG Non-Reactive (Non-Reactive)
[2022-08-01 01:27] LABS: Chol/HDL Ratio 3.33 Ratio; LDL Cholesterol,Calculated 134.6 mg/dL (0.0-131.0); VLDL Calculation 17.94 mg/dL (5.00-40.00)
[2022-08-01 07:50] VITALS: RESP 18; TEMP 97.6
[2022-08-01] MEDS ORDERED: ASPIRIN 325 MG TAB PO SCH (09:00)
[2022-08-01 09:15] LABS: HCT 45.6 % (34.0-46.0); HGB 15.7 gm/dL (11.4-16.0); MCH 30.8 pg (25.0-35.0); MCHC 34.5 g/dL (31.0-37.0); MCV 89.5 fL (80.0-100.0); Mean Platelet Volume 10.4; RBC 5.09 m/uL (3.80-5.40); RDW 13.1 % (11.5-15.5); WBC 6.7 k/uL (3.8-10.6)
[2022-08-01 09:27] LABS: African American GFR (CKD) >90 (>60 ml/min/1.73 sqM); Anion Gap 6 mmol/L; Blood Urea Nitrogen 19 mg/dL (7-17); Calcium 9.2 mg/dL (8.4-10.2); Carbon Dioxide 29 mmol/L (22-30); Chloride 104 mmol/L (98-107); Glucose 94 mg/dL (74-99); Non-African American GFR(CKD) >90 (>60 ml/min/1.73 sqM); Potassium 4.3 mmol/L (3.5-5.1); Sodium 139 mmol/L (137-145)
[2022-08-01] MEDS ORDERED: CYANOCOBALAMIN 1,000 MCG/ML 1 ML VIAL IM ONE (10:00)
--- NOTE | 2022-08-01 10:08 | CA ---
Transthoracic Echo Report Name: Trina Jara Age: 57 Gender: F : 1965 Exam Date: 07/31/2022 13:37 Exam Location: [facility] Ht (in): 68 Wt (lb): 152 Ordering Physician: Cookie Guzman DO Attending/Referring Phys: [id number], Thomas Phys Assistant Savannah Jackson, BORIS Procedure CPT: Indications: Thrombus Cardiac Hx: Technical Quality: Fair Contrast 1: Total Dose (mL): Contrast 2: Total Dose (mL): MEASUREMENTS (Male / Female) Normal Values 2D ECHO LV Diastolic Diameter PLAX 4.2 cm 4.2 - 5.9 / 3.9 - 5.3 cm LV Systolic Diameter PLAX 2.9 cm IVS Diastolic Thickness 1.2 cm 0.6 - 1.0 / 0.6 - 0.9 cm LVPW Diastolic Thickness 1.3 cm 0.6 - 1.0 / 0.6 - 0.9 cm LV Relative Wall Thickness 0.6 RV Internal Dim ED PLAX 2.8 cm M-MODE Aortic Root Diameter MM 2.7 cm AV Cusp Separation MM 1.5 cm DOPPLER AV Peak Velocity 133.6 cm/s AV Peak Gradient 7.1 mmHg LVOT Peak Velocity 109.7 cm/s LVOT Peak Gradient 4.8 mmHg MV Area PHT 3.7 cm??? Mitral E Point Velocity 86.4 cm/s Mitral A Point Velocity 89.1 cm/s Mitral E to A Ratio 1.0 MV Deceleration Time 204.5 ms TR Peak Velocity 178.4 cm/s TR Peak Gradient 12.7 mmHg FINDINGS Left Ventricle Mildly increased septal wall thickness. Moderately increased posterior wall thickness. Left ventricular cavity size normal. Left ventricular ejection fraction is estimated at 55--60 %. Right Ventricle Normal right ventricular size and function. Right ventricular systolic pressure within normal limits. Right Atrium Normal right atrial size. Left Atrium Normal left atrial size. Mitral Valve Structurally normal mitral valve. Mild mitral regurgitation. Aortic Valve Trileaflet aortic valve. No aortic regurgitation. No aortic stenosis. Tricuspid Valve Structurally normal tricuspid valve. Mild tricuspid regurgitation. Pulmonic Valve Structurally normal pulmonic valve. No pulmonic regurgitation. Pericardium No pericardial or pleural effusion. Aorta Normal size aortic root and proximal ascending aorta. CONCLUSIONS Mild LVH with preserved systolic function Previewed by: Dr. David Cardoso MD (Electronically Signed) Final Date: 01 August 2022 10:07
[2022-08-01 11:18] LABS: Platelet Count 189 k/uL (150-450)
--- NOTE | 2022-08-01 11:31 | P.PCN ---
Date of Procedure: 08/01/22 Procedure(s) Performed: Preoperative diagnosis: Multiple sclerosis Post operative diagnoses: Multiple sclerosis Procedure= lumbar puncture Anesthesia= local infiltration with lidocaine 1% 3 mL. Condition: stable Complication: none. Description of the procedure procedure risk and benefits discussed with the patient , consent signed. Patient in her room ( [id number] ) placed in sitting position, back prepped with chlorhexidine 3 times been local infiltration of the skin and subcutaneous tissue with lidocaine 1% 2 mL for skin and subcu interstitial frustrations at L4 5 levels then 22-gauge Quincke-type needle advanced slowly at L4- 5 interlaminar space there was positive cerebrospinal fluid which was clear, no heme, no paresthesia ,total of 8 ML of clear cerebrospinal fluid collected in 4 different tubes 2 mL in each, then the needle removed and a Band-Aid applied and patient tolerated the procedure well without any complications.
--- NOTE | 2022-08-01 11:55 | MR ---
EXAMINATION TYPE: MR cervical spine wo/w con DATE OF EXAM: 08/01/2022 COMPARISON: None HISTORY: Headache, multiple sclerosis. CONTRAST: Performed utilizing 7 mL intravenous Gadavist gadolinium contrast. TECHNIQUE: Multiplanar multiecho imaging on a 3.0 Patt magnet is performed through the cervical spin e. FINDINGS: The craniovertebral junction is normal. Vertebral body alignment is normal. Spinal cord maintains normal signal throughout its visualized course. No suspicious T2 hyperintensity is evident. C7-T1: No focal disc herniation or significant disc bulge is evident. No spinal canal stenosis or n eural foraminal stenosis is present. C6-7: Broad-based disc bulge is present minimally greater in the left paracentral region with minimal anterior thecal sac compression. No cord contact is evident. No spinal canal stenosis. Neural forame n are patent.. C5-6: Broad-based disc bulge is moderate anterior thecal sac compression. No cord contact is evident. No spinal canal stenosis or neural foraminal stenosis.. C4-5: Right paracentral focal bulge is present with moderate anterior thecal sac compression. Exiting nerve root contact is not identified. No cord contact is evident. No spinal canal stenosis or neural foraminal stenosis. C3-4: Minimal disc bulges and thecal sac contact. No spinal canal stenosis or neural foraminal stenos is.. C2-3: No focal disc herniation or significant disc bulge is evident. No spinal canal stenosis or abiel ral foraminal stenosis is present. IMPRESSIONS: 1. No suspicious white matter plaques identified. 2. Mild disc bulges and focal protrusions mid and lower cervical spine discussed above
--- NOTE | 2022-08-01 12:09 | MR ---
EXAMINATION TYPE: MR brain w con DATE OF EXAM: 08/01/2022 COMPARISON: 07/30/2022 HISTORY: Headache, multiple sclerosis. CONTRAST: Performed utilizing 7 mL intravenous Gadavist gadolinium contrast. TECHNIQUE: Multiplanar, multiecho imaging on a 3.0 Patt magnet is performed through the brain. Stud y is performed within 24 hours of arrival to the hospital. The craniovertebral junction is normal. The pituitary is normal. Diffusion-weighted imaging is performed. No abnormal hyperintensity is present to suggest an acute i ntracranial infarct or acute ischemic change. There is hyperintensity within the right parietal-occipital white matter or spondylosis to the acute ischemic change previously identified. Couple of additional punctate T2 hyperintensities within the subcortical white matter of the right pa rietal lobe may represent chronic microvascular ischemic type changes. Additional punctate areas with in the left frontal lobe subcortical white matter Ventricles and sulci are appropriate for the patient age. No abnormal enhancement is evident. IMPRESSIONS: 1. Acute ischemic change white matter right occipital lobe. 2. Additional chronic appearing punctate subcortical white matter changes right parietal lobe and lef t frontal lobe
[2022-08-01] MEDS ORDERED: BUTALB/APAP/CAFF 50-325-40MG TAB PO PRN (14:23)
--- NOTE | 2022-08-01 14:26 | P.PN ---
Subjective Progress Note Date: 08/01/22 57-year-old lady with no significant past medical history presented to the emergency department after patient had an abnormal MRI finding. Patient was having ongoing headache for one month and had followed up with her primary care physician ordered an MRI brain.MRI of the brain is reported as 4 mm area of diffusion restriction within the posterior right parietal lobe. Could represent tiny area of subacute ischemia. Additional couple scattered foci of abnormal signal within the white matter is nonspecific and could be on the basis of remote ischemia, hypertension, migraine headache or possibly demyelinating disease correlate clinically. FLAIR there is area of abnormal significant in the superior right parietal cortex suggestive of remote 1 cm area of prior ischemia.MRA of the head is reported as no evidence of vascular malformation or sizable aneurysm. Because of abnormal MRI she was concerned and that she wanted further evaluation Patient is admitted with further workup ordered including echocardiogram as well as carotid US Patient was seen in ED room 23 is holding. Extensive workup ordered by neurology 08/01. Patient seen and examined. Complaining of headache. Denied any weakness of any extremity REVIEW OF SYSTEMS: CONSTITUTIONAL: No fever, no malaise,. CARDIOVASCULAR: No chest pain, no palpitations, no syncope. PULMONARY: No shortness of breath, no cough, GASTROINTESTINAL: No diarrhea, no nausea, no vomiting, no abdominal pain. NEUROLOGICAL: As mentioned in HPI PHYSICAL EXAMINATION: GENERAL: The patient is alert and oriented x3, not in any acute distress. Well developed, well nourished. HEENT: Pupils are round and equally reacting to light. EOMI. No scleral icterus. No conjunctival pallor. Normocephalic, atraumatic. No pharyngeal erythema. No thyromegaly. CARDIOVASCULAR: S1 and S2 present. No murmurs, rubs, or gallops. PULMONARY: Chest is clear to auscultation, no wheezing or crackles. ABDOMEN: Soft, nontender, nondistended, normoactive bowel sounds. No palpable organomegaly. MUSCULOSKELETAL: No joint swelling or deformity. EXTREMITIES: No cyanosis, clubbing, or pedal edema. NEUROLOGICAL: Gross neurological examination did not reveal any focal deficits. SKIN: No rashes. Assessment and plan Subacute CVA right posterior parietal lobe Ongoing chronic headache Plan Monitor vital signs Monitor CBC Monitor CMP Continue telemetry monitoring MRI cervical spine with and without contrast MRI brain, echocardiogram ordered Continue to neurocheck Lumbar puncture ordered Follow-up on neurology recommendations Objective - Vital Signs Vital signs: Vital Signs Temp 97.6 F 08/01/22 07:31 Pulse 55 L 08/01/22 07:31 Resp 18 08/01/22 07:31 BP 142/89 08/01/22 07:31 Pulse Ox 97 08/01/22 07:31 FiO2 Intake & Output 07/31/22 08/01/22 08/01/22 18:59 06:59 18:59 Intake Total 358 Balance 358 Weight 68.946 kg Intake: Oral 358 Other: Voiding Method Toilet # Voids 1 - Labs CBC & Chem 7: 08/01/22 08:32 08/01/22 08:32 Labs: Abnormal Lab Results - Last 24 Hours (Table) 07/31/22 08/01/22 Range/Units 13:20 08:32 BUN 19 H (7-17) mg/dL Cholesterol 218.00 H (0.00-200.00) mg/dL LDL Cholesterol, Calc 134.6 H (0.0-131.0) mg/dL HDL Cholesterol 65.50 H (40.00-60.00) mg/dL
--- NOTE | 2022-08-01 14:47 | P.PN ---
Subjective Progress Note Date: 08/01/22 The patient is seen at bedside and states has mild headache over the right occipital/parietal region. Rates pain 3-4/10, is squeezing. Denies photophobia, phonophovia, vomiting. Has minimal nausea. Denies any other new neurological issues. Has tolerate the lumbar puncture today. Objective - Vital Signs Vital signs: Vital Signs Temp 97.6 F 08/01/22 12:10 Pulse 50 L 08/01/22 12:10 Resp 18 08/01/22 12:10 BP 159/92 08/01/22 12:10 Pulse Ox 98 08/01/22 12:10 FiO2 Intake & Output 07/31/22 08/01/22 08/01/22 18:59 06:59 18:59 Intake Total 358 500 Balance 358 500 Weight 68.946 kg Intake: Oral 358 500 Other: Voiding Method Toilet Toilet # Voids 1 3 # Bowel Movements 1 - Exam GENERAL: The patient is lying in bed and is not in acute distress. NEUROLOGICAL: Higher mental function: The patient is awake, alert, oriented to self, place and time. Patient is following commands. No aphasia and no neglect. Cranial nerves: The pupils are round, equal and reactive to light and accommodation. Visual ennis are full to confrontation throughout. Extraocular movement is intact no nystagmus is noted. Facial sensation is normal to touch throughout. The facial strength is normal throughout. Hearing is normal bilaterally to hand rub. Tongue is midline and moved [id number] without any difficulty. No dysarthria is noted. Shoulder shrug is normal bilaterally. Motor: The strength is 5 over 5 throughout. Normal tone and bulk. Cerebellum: Normal finger to nose bilaterally. Sensation: Sensation is normal to touch throughout. Reflexes (right/left): 2+ throughout. Plantars are downgoing bilaterally. MRI of the brain w/o 07/30/2022: I personally reviewed I felt that the lesion over the right parietal occipital region seems more T2 Shine thru. Does not seem like an acute or subacute ischemia. Patient has few nonspecific lesions on FLAIR that are small on bilateral frontal/parietal. Again I do not appreciate any acute or subacute ischemia. SOME OF THE WORK-UP DURING THIS HOSPITAL VISIT CONSISTED OF: ESR: 8. CRP is less than 0.5 Vitamin B12: 293 (low normal). Folate 19.6 TSH: 4.03 Lipid panel: Triglyceride of 87, cholesterol 218, LDLs 136 and HDL 65. CK level is a 60 and repeat his worry 8 PRERNA is negative. Teponema Pallidum Ab nonreactive. HIV 1/2 Ab is non reactive. MR the brain is reported as acute ischemic change white matter right occipital lobe. Additional chronic appearing punctate subcortical white matter changes right parietal lobe and left frontal. I personally reviewed the MRI and I do not appreciate there is acute or subacute ischemia. I do not appreciate any enh ancement. MRI of the cervical spine was reported as no suspicious white matter plaque identified. Mild disc bulge and focal protrusion mild and lower cervical spine. 2-D echo was reported as mild left ventricle hypertrophy with preserved systolic function. - Labs CBC & Chem 7: 08/01/22 08:32 08/01/22 08:32 Labs: Abnormal Lab Results - Last 24 Hours (Table) 07/31/22 08/01/22 Range/Units 13:20 08:32 BUN 19 H (7-17) mg/dL Cholesterol 218.00 H (0.00-200.00) mg/dL LDL Cholesterol, Calc 134.6 H (0.0-131.0) mg/dL HDL Cholesterol 65.50 H (40.00-60.00) mg/dL Assessment and Plan Assessment: This is a 57-year-old woman who presented to the emergency department because of headache as well as recent MRI the brain on 07/30/2022 that was reported abnormal suggestive of subacute ischemia over the right parietal. Regarding the lesion on the right parietal/occipital: I felt was more T2 shine through. It is not acute or subacute ischemia. Lesion is possibly demylinating (MS). Cannot conclusively rule out old stroke but I feel unlikely. Cephalgia due to above Low normal vitamin B12 293 (normal is 200-944) Plan: -I personally reviewed the MRI and do not feel the patient has acute or subacute ischemia. Again as stated earlier I feel the patient has at T2 shine thru over the right parietal/occipital region. Also has nonspecific small lesion over the bilateral frontal parietal region and there is feel numb. Again I suspect multiple sclerosis as my differential more than stroke. I recommend the patient to be a valid by a neurologist outpatient and consider surveillance MRI every year unless any neurological change then earlier. -Patient has lumbar puncture today and pending. result. -Pending HTLV-1 and Vitamin D result -Because of low normal vitamin B12 I started the patient on the vitamin B12 1000 g daily. With IM 1000 mg today once. -Continue aspirin 81 mg daily and Lipitor 40 mg daily for secondary stroke prophylaxis. -Continue neurochecks -Continue cardiac monitoring -PT OT and RESEARCH ANALYST are consulted -For the headache didn't seem migrainous in etiology. I started the patient on Fioricet PRN. -Defer the rest of the medical management to primary team -For DVT prophylaxis started on subq heparin 5000IU every 8 hours. -Upon discharge the patient needs to follow-up with a neurologist in outpatient within 1-2 weeks. The plan was discussed with the patient and [id number] in length. Time with Patient: Greater than 30
[2022-08-01 16:48] LABS: Appearance,CSF Clear; CSF Tube Number 4; CSF Tube Volume 2.5; Glucose,CSF 59 mg/dL (40-70); Total Protein,CSF 42 mg/dL (12-60)
[2022-08-01 17:20] LABS: Nucleated Cells, CSF 0 u/L (0-5); Red Blood Cell,CSF 1 u/L (0-10)
[2022-08-01 20:22] VITALS: BP 143/90; PULSE 53
[2022-08-01] MEDS ORDERED: ATORVASTATIN 40 MG TAB PO SCH ×2 (21:00)
--- NOTE | 2022-08-02 08:51 | P.DS ---
Providers Date of admission: 08/01/22 14:30 Expected date of discharge: 08/02/22 Attending physician: Alda Laws Consults: 07/31/22 08:45 Consult Physician Routine Consulting Provider: Refugio Danielle Consult Reason/Comments: subacute cva Do you want consulting provider notified?: Already Contacted Primary care physician: Physician Nonstaff Hospital Course: Discharge diagnoses; Regarding the lesion on the right parietal/occipital: It is not acute or subacute ischemia. Lesion is possibly demylinating (MS). Cannot conclusively rule out old . Cephalgia due to above Low normal vitamin B12 293 (normal is 200-944) Hospital course; 57-year-old lady with no significant past medical history presented to the emergency department after patient had an abnormal MRI finding. Patient was having ongoing headache for one month and had followed up with her primary care physician ordered an MRI brain.MRI of the brain is reported as 4 mm area of diffusion restriction within the posterior right parietal lobe. Could represent tiny area of subacute ischemia. Additional couple scattered foci of abnormal signal within the white matter is nonspecific and could be on the basis of kurt te ischemia, hypertension, migraine headache or possibly demyelinating disease correlate clinically. FLAIR there is area of abnormal significant in the superior right parietal cortex suggestive of remote 1 cm area of prior ischemia.MRA of the head is reported as no evidence of vascular malformation or sizable aneurysm. * Because of abnormal MRI she was concerned and that she wanted further evalua tion * Patient was admitted to internal medicine, neurology were consulted, they recommended doing an MRI brain and MRIs cervical spine. Neurology reviewed MRI they think that the patient has at T2 shine thru over the right parietal/occipital region. They suspected MRI findings more suggestive of multiple sclerosis than stroke. They recommended that the patient to be a valid by a neurologist outpatient and consider surveillance MRI every year unless any neurological change then earlier. Because of low normal vitamin B12 patient was started on the vitamin B12 1000 g daily. With IM 1000 mg today once. -Continue aspirin 81 mg daily and Lipitor 40 mg daily for secondary stroke prophylaxis. Neurology cleared the patient for discharge PHYSICAL EXAMINATION: GENERAL: The patient is alert and oriented x3, not in any acute distress. Well developed, well nourished. HEENT: Pupils are round and equally reacting to light. EOMI. No scleral icterus. No conjunctival pallor. Normocephalic, atraumatic. No pharyngeal erythema. No thyromegaly. CARDIOVASCULAR: S1 and S2 present. No murmurs, rubs, or gallops. PULMONARY: Chest is clear to auscultation, no wheezing or crackles. ABDOMEN: Soft, nontender, nondistended, normoactive bowel sounds. No palpable organomegaly. MUSCULOSKELETAL: No joint swelling or deformity. EXTREMITIES: No cyanosis, clubbing, or pedal edema. NEUROLOGICAL: Gross neurological examination did not reveal any focal deficits. SKIN: No rashes. Patient Condition at Discharge: Stable Plan - Discharge Summary Discharge Rx Participant: No New Discharge Prescriptions: New Atorvastatin [Lipitor] 40 mg PO HS #30 tab Cyanocobalamin [Vitamin B-12] 1,000 mcg PO DAILY #30 tab Butalb/APAP/Caff 50-325-40Mg [Fioricet 50-325-40] 1 each PO Q4HR PRN #21 tab PRN Reason: Headache Continue Aspirin EC [Ecotrin Low Dose] 81 mg PO DAILY valACYclovir HCL [Valtrex] 1,000 mg PO DAILY PRN PRN Reason: first sign of breakout Discontinued Ibuprofen [Advil] 600 - 800 mg PO Q8H PRN PRN Reason: Headache Discharge Medication List Aspirin EC [Ecotrin Low Dose] 81 mg PO DAILY 07/31/22 [History] valACYclovir HCL [Valtrex] 1,000 mg PO DAILY PRN 07/31/22 [History] Atorvastatin [Lipitor] 40 mg PO HS #30 tab 08/01/22 [Rx] Butalb/APAP/Caff 50-325-40Mg [Fioricet 50-325-40] 1 each PO Q4HR PRN #21 tab 08/01/22 [Rx] Cyanocobalamin [Vitamin B-12] 1,000 mcg PO DAILY #30 tab 08/01/22 [Rx] Follow up Appointment(s)/Referral(s): Nonstaff,Physician [Primary Care Provider] - 1-2 days Patrick Nath DO [STAFF PHYSICIAN] - 1 Week Discharge Disposition: HOME SELF-CARE
[2022-08-02] MEDS ORDERED: ASPIRIN 81 MG PO SCH (09:00)
[2022-08-02] MEDS ORDERED: CYANOCOBALAMIN 500 MCG TAB PO SCH (09:00)
[2022-08-02 13:11] LABS: IgG - CSF 1.6 mg/dL (0.0 - 3.4); IgG/Albumin Index (CSF) 0.53 (0.00 - 0.77); Immunoglobulin G 871 mg/dL (700 - 1600)
== END 2022-08-01 20:25 | disposition home or self-care (01) ==
LOC: EC 06:36 → 3SCARD 08:44 → OBSVTOIN 08-01 14:30 → INTOOBSV 08-01 14:30 → UNDODISIN 08-01 20:25
PROVIDERS: ADMIT Hospitalist; ATTEND Hospitalist
PROC: 009U3ZX Drainage of Spinal Canal, Percutaneous Approach, Diagnostic (ICD-10-PCS; principal; 2022-08-01 11:30)
DX: R51.9 Headache, unspecified (principal); G93.9 Disorder of brain, unspecified; R90.89 Other abnormal findings on diagnostic imaging of central nervous system; I51.7 Cardiomegaly; M50.20 Other cervical disc displacement, unspecified cervical region; Z79.82 Long term (current) use of aspirin; Z79.899 Other long term (current) drug therapy; Z88.1 Allergy status to other antibiotic agents; Z88.2 Allergy status to sulfonamides; Z82.3 Family history of stroke
CPT/HCPCS: 96372; 99285; 93005; 93306; 97161; 97165; 92610; 92523; 82652; 88108; 84157; 80061; 80053; 80048; 82945; 85652; 84443; 86790 ×2; 82040; 82042; 82784; 83916; 82607; 82550; 82746; 82164; 83873; 84484; 85025; 85027; 85610; 85730; 86140; 89050; 86780; 86038; 87390; 93880; 70552; 72156; 62270; G0378 ×2; J3420; A9585

== ENCOUNTER → 2022-08-30 | Outpatient (CLI) | payer OTHER ==
[2022-08-30 21:05] LABS: African American GFR (CKD) 112.3 (60.0-200.0); Albumin 4.5 g/dL (3.8-4.9); Anion Gap 9.9 mmol/L (10.00-18.00); BUN/Creat Ratio 24.43 Ratio (12.00-20.00); Blood Urea Nitrogen 17.1 mg/dL (9.0-27.0); Calcium 9.5 mg/dL (8.7-10.3); Carbon Dioxide 26.1 mmol/L (20.0-27.5); Non-African American GFR(CKD) 96.9 (60.0-200.0); Phosphorus 3.8 mg/dL (2.4-5.1); Potassium 4.2 mmol/L (3.5-5.5)
== END | disposition home or self-care (01) ==
LOC: LABWHC1 11:07
PROVIDERS: ATTEND Nurse Practitioner
DX: I10 Essential (primary) hypertension (principal)
CPT/HCPCS: 36415; 80069

== ENCOUNTER → 2022-09-23 | Outpatient (CLI) | payer OTHER ==
[2022-09-23 15:53] LABS: ALT 37 U/L; AST 30 U/L; Chol/HDL Ratio 2.16 Ratio; LDL Cholesterol,Calculated 65.8 mg/dL
== END | disposition home or self-care (01) ==
LOC: LABWHC1 08:23
PROVIDERS: ATTEND Internal Medicine Interventional Cardiology
DX: E78.2 Mixed hyperlipidemia (principal)
CPT/HCPCS: 36415; 80061; 84450; 84460

== ENCOUNTER → 2022-09-30 | Outpatient (CLI) | payer OTHER ==
--- NOTE | 2022-10-01 12:58 | MM ---
Reason for Exam: Screening (asymptomatic). Last mammogram was performed 1 year(s) and 2 month(s) ago. Patient History: Menarche at age 17. Postmenopausal. Risk Values: Anju 5 year model risk: 0.8%. NCI Lifetime model risk: 5.3%. Prior Study Comparison: 01/16/2018 Bilateral Screening Mammogram, [facility]. 04/12/2020 Bilateral Screening Mammogram, [facility]. 08/14/2021 Bilateral Screening Mammogram, [facility]. Tissue Density: The breast tissue is heterogeneously dense. This may lower the sensitivity of mammography. Findings: Analyzed By CAD. There is no suspicious group of microcalcifications or new suspicious mass in either breast. Benign round calcifications within the left breast. Overall Assessment: Benign, BI-RAD 2 Management: Screening Mammogram of both breasts in 1 year. A clinical breast exam by your physician is recommended on an annual basis and results should be correlated with mammographic findings. Note on Anju scores and lifetime risk: 1. A Anju score greater than 3% is considered moderate risk. If this is the case, consider specialist referral to assess eligibility for a risk reducing agent. If overall lifetime risk for the development of breast cancer is 20% or higher, the patient may qualify for future screening with alternating mammogram and breast MRI. Electronically signed and approved by: Franco Mcadams D.O.
== END | disposition home or self-care (01) ==
LOC: RADMAMWWP 08:15
PROVIDERS: ATTEND Nurse Practitioner
DX: Z12.31 Encounter for screening mammogram for malignant neoplasm of breast (principal); Z78.0 Asymptomatic menopausal state
CPT/HCPCS: 77067

== ENCOUNTER → 2023-01-03 | Outpatient (CLI) | payer OTHER ==
[2023-01-03 11:37] LABS: Appearance,Urine Clear (Clear); Bilirubin,Urine Negative (Negative); Blood,Urine Negative (Negative); Color,Urine Colorless; Glucose,Urine (UA) Negative (Negative); Ketones,Urine Negative (Negative); Leukocyte Esterase,Urine Trace (Negative); Mucus,Urine Rare /hpf; Nitrite,Urine Negative (Negative); PH, Urine 6.5 (5.0-8.0); Protein,Urine Negative (Negative); RBC,Urine <1 /hpf (0-5); Specific Gravity,Urine 1.007 (1.001-1.035); Squamous Epithelial Cell,Urine 1 /hpf (0-4); Urobilinogen,Urine <2.0 mg/dL (<2.0); WBC,Urine 1 /hpf (0-5)
[2023-01-03 11:58] LABS: Creatinine,Urine Random 46.1 mg/dL; Protein/Creatinine Ratio,Urine 0.174
[2023-01-03 16:22] LABS: ALT 42 U/L (8-44); AST 45 U/L (13-35); Albumin 4.9 d/dL (3.8-4.9); Albumin/Globulin Ratio 2.23 Ratio (1.60-3.17); Alkaline Phosphatase 108 U/L (41-126); BUN/Creat Ratio 18.56 Ratio (12.00-20.00); Blood Urea Nitrogen 16.7 mg/dL (9.0-27.0); Calcium 9.9 mg/dL (8.7-10.3); Carbon Dioxide 25.6 mmol/L (21.6-31.8); Chloride 103 mmol/L (96-109); Globulin 2.2 d/dL (1.6-3.3); Glucose 100 mg/dL (70-110); Potassium 4.9 mmol/L (3.5-5.5); Sodium 139 mmol/L (135-145); Total Bilirubin 0.5 mg/dL (0.3-1.2); Total Protein 7.1 d/dL (6.2-8.2)
[2023-01-07 10:22] LABS: Dopamine 24 Hr Urine 288 ug/day (65-400); Epinephrine 24 Hr Urine 6 ug/day (0-20); Norepinephrine 24 Hr Urine 67 ug/day (15-80); Total Catecholamines Urine 73 ug/day (15-100); Total Volume 24Hr 3,200 mL (600-2000); Urine Creatinine,24 Hr 1.2 gm/24h (0.8-1.8)
[2023-01-07 10:23] LABS: Metanephrines 24 Hour,Urine 106 ug/day (52-341); Normetanephrine 24 Hour,Urine 310 ug/day (88-444); Total Metanephrines 24 Hour,Ur 416 ug/day (140-785); Urine Creatinine, 24 Hr 1.2 gm/24h (0.8-1.8)
[2023-01-07 14:24] LABS: Cortisol, Urine Free by LC-MS 9.2 ug/L; Free Cortisol 24 Hour,Urine 29.4 ug/day (<45.0)
== END | disposition home or self-care (01) ==
LOC: LABWHC1 10:23
PROVIDERS: ATTEND Internal Medicine Nephrology
DX: I10 Essential (primary) hypertension (principal)
CPT/HCPCS: 36415; 80053; 81001; 82088; 82384; 82530; 82570; 83835; 84156; 84244; 87086

== ENCOUNTER → 2023-01-22 | Outpatient (CLI) | payer OTHER ==
--- NOTE | 2023-01-22 09:17 | US ---
EXAMINATION TYPE: US renal artery duplex complet DATE OF EXAM: 01/22/2023 COMPARISON: NONE CLINICAL INDICATION: Female, 57 years old with history of I10 HYPERTENSION; Hx stroke in July, on bl ood pressure meds since then. MEASUREMENTS: RENAL SIZE: Rt Kidney: 10.8 x 5.8 x 4.6 Lt Kidney: 13.1 x 4.5 x 4.6 RESISTANCE INDEX Right: 0.65 Left: 0.72 RA/AO RATIO (< 3.5 ) Right: 1.6 Left: 1.5 RA VELOCITY ( < 180 cm/s) Right: 125.4 Left: 118.4 No evidence of stenosis by ultrasound. Limited due to gas. Right renal pelvis appears prominent. Left kidney appears enlarged. Incidental finding: Hyperechoic focus with posterior shadowing seen within the gallbladder: 2.1 x 2.2 x 1.0 cm. IMPRESSION: 1. No ultrasound evidence for renal artery stenosis. 2. Cholelithiasis.
== END | disposition home or self-care (01) ==
LOC: RADUSWWP 06:53
PROVIDERS: ATTEND Internal Medicine Nephrology
DX: K80.20 Calculus of gallbladder without cholecystitis without obstruction (principal); I10 Essential (primary) hypertension; Z86.73 Personal history of transient ischemic attack (TIA), and cerebral infarction without residual deficits; Z79.899 Other long term (current) drug therapy
CPT/HCPCS: 93975

== ENCOUNTER → 2023-02-11 | Outpatient (CLI) | payer OTHER ==
[2023-02-11 11:08] LABS: ALT 50 U/L (8-44); AST 40 U/L (13-35); Chol/HDL Ratio 2.04 Ratio; VLDL Calculation 11.04 mg/dL (5.00-40.00)
== END | disposition home or self-care (01) ==
LOC: LABWHC1 07:33
PROVIDERS: ATTEND Internal Medicine Interventional Cardiology
DX: E78.2 Mixed hyperlipidemia (principal)
CPT/HCPCS: 36415; 80061; 84450; 84460

== ENCOUNTER → 2023-03-04 | Outpatient (CLI) | payer OTHER ==
[2023-03-04 15:55] LABS: Estradiol <20.0 pg/mL
== END | disposition home or self-care (01) ==
LOC: LABWHC1 07:47
PROVIDERS: ATTEND Midwife
DX: R68.82 Decreased libido (principal)
CPT/HCPCS: 36415; 82670; 84144; 84402; 84403

== ENCOUNTER → 2023-03-04 | Outpatient (CLI) | payer OTHER ==
--- NOTE | 2023-03-04 10:06 | BD ---
EXAMINATION TYPE: Axial Bone Density DATE OF EXAM: 03/04/2023 CLINICAL HISTORY: 57 years old Female. ICD-10 CODE: N95.1 MENOPAUSAL Height: 68 Weight: 159 FRAX RISK QUESTIONS: Alcohol (3 or more units per day): no Family History (Parent hip fracture): no Glucocorticoids (More than 3mos): no History of Fracture in Adulthood: no Secondary Osteoporosis: 1. Type 1 Diabetes: no 2. Hyperthyroidism: no 3. Menopause before 45: no 4. Malnutrition: no 5. Chronic liver disease: no Rheumatoid Arthritis: no Current Tobacco Use: no RISK FACTORS HISTORY OF: Hip Fracture (Right/Left): no Spine Fracture: no History of Wrist Fracture: no Surgery to Spine/Hip(right/left)/Wrist (right/left): no Family History of Osteoporosis: Paternal Grandmother Active: yes Diet low in dairy products/other sources of calcium: yes Postmenopausal woman: yes Take estrogen and/or progesterone medications: no Lost more than 2 inches in height since high school: no Frequent falls: no Poor Health: no Hyperparathyroidism: no Adrenal Insufficiency: no MEDICATIONS: Prednisone or other steroids: no Thyroid Medications: no Osteoporosis Medications: no Additional Medications: Cholesterol Meds, BP Meds Additional History: EXAM MEASUREMENTS: Bone mineral densitometry was performed using the [employer]. Bone mineral density as measured about the Lumbar spine is: ----- L1-L4(G/cm2): 1.148 T Score Values are as follows: ----- L1: -0.6 ----- L2: -1.0 ----- L3: 0.5 ----- L4: -0.4 ----- L1-L4: -0.3 Z Score Values are as follows: ----- L1: 0.1 ----- L2: -0.3 ----- L3: 1.2 ----- L4: 0.3 ----- L1-L4: 0.4 Bone mineral density has: decreased -11.2 % since study of: 2015 Bone mineral density about the R hip (g/cm2): 1.135 Bone mineral density about the L hip (g/cm2): 1.077 T Score values are as follows: -----R Neck: 0.5 -----L Neck: -0.2 -----R Total: 1.0 -----L Total: 0.6 Z Score values are as follows: -----R Neck: 1.4 -----L Neck: 0.7 -----R Total: 1.6 -----L Total: 1.1 Bone mineral density has: decreased -7.6 % since study of: 2014 FRAX%s: The graph provided illustrates a 5..5% chance for a major osteoporotic fx and a 0.1% chance f or the hips probability for fx in 10 years time. IMPRESSION: Normal (Values between +1 and -1 indicate normal bone mass). Consider repeating this study in 5 year s or sooner if there is some new clinical indication. NOTE: T-SCORE=SD OF THE YOUNG ADULT MEAN.
== END | disposition home or self-care (01) ==
LOC: RADBDWWP 07:24
PROVIDERS: ATTEND Obstetrics & Gynecology
DX: Z13.820 Encounter for screening for osteoporosis (principal); N95.1 Menopausal and female climacteric states
CPT/HCPCS: 77080

== ENCOUNTER → 2023-08-29 | Outpatient (CLI) | payer OTHER ==
[2023-08-29 16:07] LABS: Chol/HDL Ratio 2.11 Ratio; LDL Cholesterol,Calculated 58.2 mg/dL (0.0-131.0); VLDL Calculation 10.74 mg/dL (5.00-40.00)
[2023-08-29 16:08] LABS: ALT 32 U/L (8-44); AST 34 U/L (13-35); Albumin 4.4 g/dL (3.8-4.9); Alkaline Phosphatase 111 U/L (41-126); BUN/Creat Ratio 27.29 Ratio (12.00-20.00); Blood Urea Nitrogen 19.1 mg/dL (9.0-27.0); Calcium 9.7 mg/dL (8.7-10.3); Carbon Dioxide 28.1 mmol/L (21.6-31.8); Chloride 104 mmol/L (96-109); Glucose 95 mg/dL (70-110); Potassium 4.7 mmol/L (3.5-5.5); Sodium 142 mmol/L (135-145); Total Bilirubin 0.4 mg/dL (0.3-1.2); Total Protein 6.4 g/dL (6.2-8.2)
== END | disposition home or self-care (01) ==
LOC: LABWHC1 07:57
PROVIDERS: ATTEND Internal Medicine Interventional Cardiology
DX: I10 Essential (primary) hypertension (principal); I67.9 Cerebrovascular disease, unspecified; E78.2 Mixed hyperlipidemia
CPT/HCPCS: 36415; 80053; 80061; 83036

== ENCOUNTER → 2023-12-18 | Outpatient (CLI) | payer OTHER ==
--- NOTE | 2023-12-24 07:24 | MM ---
Reason for Exam: Screening (asymptomatic). Last mammogram was performed 1 year(s) and 2 month(s) ago. Patient History: Menarche at age 17. Postmenopausal. Risk Values: Anju 5 year model risk: 0.8%. NCI Lifetime model risk: 5.2%. Prior Study Comparison: 04/12/2020 Bilateral Screening Mammogram, [facility]. 08/14/2021 Bilateral Screening Mammogram, [facility]. 09/30/2022 Bilateral MG screening mammo w CAD, [facility]. Tissue Density: The breasts are heterogeneously dense, which may obscure small masses. Findings: Analyzed By CAD. Right breast: There is no suspicious group of microcalcifications or new suspicious mass. Left breast: There is no suspicious group of microcalcifications or new suspicious mass. Benign-appearing calcifications left breast. Overall Assessment: Benign, BI-RAD 2 Management: Screening Mammogram of both breasts in [address] [facility] will attempt to contact patient to return for supplemental views and ultrasound if indicated. Patient should continue monthly self-breast exams. A clinical breast exam by your physician is recommended on an annual basis. This exam should not preclude additional follow-up of suspicious palpable abnormalities. Note on Anju scores and lifetime risk: 1. A Anju score greater than 3% is considered moderate risk. If this is the case, consider specialist referral to assess eligibility for a risk reducing agent. 2. If overall lifetime risk for the development of breast cancer is 20% or higher, the patient may qualify for future screening with alternating mammogram and breast MRI. Electronically signed and approved by: Tres Collazo DO
== END | disposition home or self-care (01) ==
LOC: RADMAMWWP 08:25
PROVIDERS: ATTEND Pediatrics
DX: Z12.31 Encounter for screening mammogram for malignant neoplasm of breast
CPT/HCPCS: 77063; 77067